=== PATIENT | male | born 1990 | race Caucasian/White ===

== ENCOUNTER 2024-02-02 16:11 | Outpatient (CLI) | payer SELFPAY | END 2024-02-02 23:59 | disposition critical access hospital (66) | LOC: EMS 16:11 | DX: S01.311A Laceration without foreign body of right ear, initial encounter (principal); M54.9 Dorsalgia, unspecified; R07.81 Pleurodynia; R41.82 Altered mental status, unspecified; R61 Generalized hyperhidrosis; V86.59XA Driver of other special all-terrain or other off-road motor vehicle injured in nontraffic accident, initial encounter; Y92.009 Unspecified place in unspecified non-institutional (private) residence as the place of occurrence of the external cause | CPT/HCPCS: A0425; A0429 ==

== ENCOUNTER 2024-02-02 16:33 | Emergency (ER) | payer SELFPAY ==
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
[2024-02-02] MEDS: AMOX/CLAV 875 MG/125 MG TABLET PO STA (17:39)
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
[2024-02-02] MEDS: IBUPROFEN 800 MG TABLET PO STA (18:03)
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
[2024-02-02 20:16] VITALS: O2SAT 98
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
[2024-02-02 20:46] VITALS: BP 122/81
== END 2024-02-02 20:54 | disposition home or self-care (01) ==
LOC: EDUNIT# → ED 16:33
DX: S09.90XA Unspecified injury of head, initial encounter (principal); S01.311A Laceration without foreign body of right ear, initial encounter; S22.31XA Fracture of one rib, right side, initial encounter for closed fracture; V86.59XA Driver of other special all-terrain or other off-road motor vehicle injured in nontraffic accident, initial encounter; Y92.007 Garden or yard of unspecified non-institutional (private) residence as the place of occurrence of the external cause; F17.200 Nicotine dependence, unspecified, uncomplicated
CPT/HCPCS: 36415; 70450; 71045; 71250; 72125; 99284; A9270